=== PATIENT | female | born 1995 | race Caucasian/White ===

== ENCOUNTER 2025-04-03 07:22 | Outpatient (CLI) | payer OTHER, SELFPAY ==
--- NOTE | 2025-04-03 07:45 | CRLHL7_ITS ---
For Patients: As a result of the Century Cures Act, medical imaging exams and procedure reports are released immediately into your electronic medical record. You may view this report before your referring provider. If you have questions, please contact your health care provider. CLINICAL HISTORY: RIGHT breast lump. COMPARISON: None TECHNIQUE: Digital RIGHT mammogram in 2 projections with computer-aided detection. Tomosynthesis was used in this interpretation. Real-time ultrasound imaging of RIGHT breast with imaging documentation. BREAST COMPOSITION: There are scattered areas of fibroglandular density. FINDINGS: 3D cc/MLO right breast mammogram images submitted. No suspicious masses or architectural distortion. No suspicious calcifications. No adenopathy. Targeted right breast ultrasound performed in the area of concern at 12 o`clock 7 cm from the nipple. Normal fibroglandular tissue is present. No fibrocystic change or mass. IMPRESSION: No evidence of malignancy. RECOMMENDATIONS: Clinical follow-up. Age-appropriate screening mammography. A lay language report of this examination will be provided to the patient. BI-RADS Category 2. Benign. Dictated by Michael Salinas MD @ 04/03/2025 8:50:56 AM (Electronically Signed)
--- NOTE | 2025-04-03 08:15 | CRLHL7_ITS ---
For Patients: As a result of the Cures Act, medical imaging exams and procedure reports are released immediately into your electronic medical record. You may view this report before your referring provider. If you have questions, please contact your health care provider. See RIGHT diagnostic mammogram of same date. DM:[email or web address] 04/03/2025 DW/Dictated by: Michael Salinas MD @ 04/03/2025 8:51:00 AM (Electronically Signed)
== END 2025-04-03 07:23 | disposition home or self-care (01) ==
LOC: MAMMO 07:23
PROVIDERS: Visit Provider Physician Assistant
DX: N63.10 Unspecified lump in the right breast, unspecified quadrant (principal)
CPT/HCPCS: 76642; 77065; G0279